=== PATIENT | female | born 1980 | race Two or more races ===

== ENCOUNTER 2022-05-02 15:36 | Emergency (ER) | payer OTHER ==
[~2022-05-02] VITALS: Ht 162.6 cm; Wt 81.0 kg
[2022-05-02] MEDS ORDERED: SUCCINYLCHOLINE CHLORIDE 20 MG/ML 10 ML VIAL ONE (16:10)
[2022-05-02 16:19] VITALS: BP 133/77
[2022-05-02] MEDS ORDERED: SODIUM CHLORIDE 3% 500 ML IV ONE (16:30)
[2022-05-02] MEDS ORDERED: MIDAZOLAM HCL 5 MG/ML VIAL ONE (16:32)
[2022-05-02] MEDS ORDERED: MIDAZOLAM HCL 5 MG/ML VIAL IVP ONE (16:45)
== END 2022-05-02 16:40 | disposition short-term general hospital (02) ==
LOC: EMS 15:36
DX: S06.4XAA Epidural hemorrhage with loss of consciousness status unknown, initial encounter (principal); R41.82 Altered mental status, unspecified; D68.9 Coagulation defect, unspecified; R56.9 Unspecified convulsions; D64.9 Anemia, unspecified; X58.XXXA Exposure to other specified factors, initial encounter; Y93.89 Activity, other specified; Y92.89 Other specified places as the place of occurrence of the external cause; Y99.8 Other external cause status
CPT/HCPCS: 99291; 70450; 31500; 96374; 96361; 72125; J0330; J2250; J7030